=== PATIENT | female | born 1995 | race African-American/Black ===

== ENCOUNTER 2022-09-12 07:50 | Inpatient (IN) | payer MEDICAID ==
[2022-09-12] MEDS ORDERED: Methylergonovine 0.2 MG/1 ML Amp IM PRN (08:09)
[2022-09-12] MEDS ORDERED: Sodium Chloride 0.9% 2.5 ML Syringe FLUSH PRN (08:09)
[2022-09-12] MEDS ORDERED: Lidocaine 1% 50 ML MDV INJECT PRN (08:09)
[2022-09-12] MEDS ORDERED: Butorphanol 1 MG/ML SDV IVPUSH PRN (08:09)
[2022-09-12] MEDS ORDERED: Sodium Chloride 0.9% 10 ML Syringe FLUSH PRN (08:09)
[2022-09-12] MEDS ORDERED: Tranexamic Acid 1,000 MG in Sodium Chloride 0.9% 100 ML IV PRN (08:09)
[2022-09-12] MEDS ORDERED: Ondansetron 4 MG/2 ML SDV IVPUSH PRN (08:09)
[2022-09-12] MEDS ORDERED: Misoprostol 200 MCG Tab PO PRN (08:09)
[2022-09-12] MEDS ORDERED: Water For Irrigation,Sterile 1,000 ML Container IRR PRN (08:09)
[2022-09-12] MEDS ORDERED: Sodium Chloride 0.9% 20 ML SDV IV PRN (08:09)
[2022-09-12] MEDS ORDERED: Terbutaline 1 MG/ML SDV SUBCUT PRN (08:09)
[2022-09-12] MEDS ORDERED: Carboprost Tromethamine 250 MCG/1 ML Amp IM PRN (08:09)
[2022-09-12] MEDS ORDERED: Oxytocin/0.9 % Sodium Chloride 30 UNIT/500 ML BAG IV SCH ×2 (08:15)
[2022-09-12] MEDS: Lactated Ringers 1,000 ML IV SCH ×2 (08:20→10:18)
[2022-09-12] MEDS ORDERED: Ropivacaine/PF 400 MG/200 ML PCA ONE (09:04)
[2022-09-12] MEDS ORDERED: Bupivacaine 0.5% 10 ML SDV ONE (09:04)
[2022-09-12] MEDS ORDERED: Phenylephrine HCl In 0.9% NaCl 1 MG/10 ML Vial IVPUSH PRN (09:27)
[2022-09-12] MEDS ORDERED: ePHEDrine 50 MG/ML SDV IVPUSH PRN ×2 (09:27)
[2022-09-12] MEDS ORDERED: Ropivacaine HCl/PF 400 MG in Premix Bag 1 BAG EPIDUR SCH (09:30)
[2022-09-12] MEDS: Phenylephrine HCl In 0.9% NaCl 1 MG/10 ML Vial IVPUSH SCH (12:23)
[2022-09-12] MEDS ORDERED: Benzocaine/Menthol 20%-0.5% Spray 78 GM Cannister TOP PRN (14:47)
[2022-09-12] MEDS ORDERED: Lanolin 100% Cream 7 GM Tube TOP PRN (14:47)
[2022-09-12] MEDS ORDERED: Docusate Sodium 100 MG Cap PO PRN (14:47)
[2022-09-12] MEDS ORDERED: oxyCODONE 5 MG Tab PO PRN (14:47)
[2022-09-12] MEDS ORDERED: Ibuprofen 400 MG Tab PO PRN (14:47)
[2022-09-12] MEDS ORDERED: Witch Hazel Medicated Pads 40/Jar TOP PRN (14:47)
[2022-09-12] MEDS ORDERED: Bisacodyl 10 MG Supp RECTAL PRN (14:47)
[2022-09-12] MEDS ORDERED: Ibuprofen 800 MG Tab PO PRN (14:47)
[2022-09-12] MEDS ORDERED: Acetaminophen 500 MG Tab PO PRN ×2 (14:47)
== END 2022-09-14 12:30 | disposition home or self-care (01) | DRG 807 ==
LOC: MW.OBCHECK 07:50 → MW.OB 07:52 → MW.OBCHECK 14:33 → MW.OB 09-13 04:49
PROVIDERS: ADMIT Obstetrics & Gynecology; ATTEND Obstetrics & Gynecology
PROC: 10E0XZZ Delivery of Products of Conception, External Approach (ICD-10-PCS; principal; 2022-09-12)
PROC: 10907ZC Drainage of Amniotic Fluid, Therapeutic from Products of Conception, Via Natural or Artificial Opening (ICD-10-PCS; 2022-09-12)
PROC: 3E0R3BZ Introduction of Anesthetic Agent into Spinal Canal, Percutaneous Approach (ICD-10-PCS; 2022-09-12)
PROC: 00HU33Z Insertion of Infusion Device into Spinal Canal, Percutaneous Approach (ICD-10-PCS; 2022-09-12)
DX: O80 Encounter for full-term uncomplicated delivery (principal); Z37.0 Single live birth; Z3A.38 38 weeks gestation of pregnancy
CPT/HCPCS: 01967; 36415; 51702; 59025; 59409; 80305-QW; 85014; 85018; 85027; 86592; 86850; 86900; 86901; A9270-GY; J0595; J2590; J2795; J3490; J7120; U0002

== ENCOUNTER 2023-12-16 18:27 | Observation (INO) | payer SELFPAY ==
[2023-12-16] MEDS: Midazolam 1 MG/ML 2 ML SDV IVPUSH ONE ×2 (19:35→20:43)
[2023-12-16] MEDS: Ondansetron 4 MG/2 ML SDV IVPUSH ONE (19:35)
[2023-12-16] MEDS: Lactated Ringers 1,000 ML IV STA (19:36)
[2023-12-16] MEDS: Sodium Chloride 0.9% 10 ML Syringe FLUSH PRN (19:36)
[2023-12-16] MEDS: Sodium Chloride 0.9% 2.5 ML Syringe FLUSH PRN (19:36)
[2023-12-16 19:41] LABS: BASOPHILS ABSOLUTE AUTO 0.04 K/uL (0.00-0.20); BASOPHILS PERCENT AUTO 0.5 % (0.0-1.0); HEMATOCRIT 41.7 % (37.0-47.0); HEMOGLOBIN 15.5 g/dL (12.0-16.0); IMMATURE GRAN ABSOLUTE AUTO 0.03 K/uL (0.00-0.05); IMMATURE GRAN PERCENT AUTO 0.3 % (0.0-0.4); LYMPHOCYTES PERCENT AUTO 19.3 % (24.0-44.0); MEAN CORPUSCULAR HGB CONC 37.2 g/dL (32.0-36.0); MEAN CORPUSCULAR VOLUME 86.2 fL (83.0-99.0); MEAN PLATELET VOLUME 9.2 fL (9.4-12.3); MONOCYTES ABSOLUTE AUTO 0.57 K/uL (0.00-0.80); MONOCYTES PERCENT AUTO 6.5 % (0.0-8.0); NEUTROPHILS ABSOLUTE AUTO 6.49 K/uL (1.80-7.70); NEUTROPHILS PERCENT AUTO 73.4 % (41.0-71.0); PLATELET COUNT,PLT 283 K/uL (150-400); RED BLOOD CELL COUNT 4.84 M/uL (4.10-5.30); WHITE BLOOD CELL COUNT,WBC 8.83 K/uL (3.9-11.3)
[2023-12-16 19:53] LABS: AMPHETAMINES SCREEN, URINE NEGATIVE (CUTOFF=500); BARBITURATE SCREEN,URINE NEGATIVE (CUTOFF=200); BENZODIAZEPINES SCREEN,URINE NEGATIVE (CUTOFF=150); BUPRENORPHINE SCREEN,URINE NEGATIVE (CUTOFF=10); METHADONE SCREEN, URINE NEGATIVE (CUTOFF=200); METHAMPHETAMINES SCREEN, URINE NEGATIVE (CUTOFF=500); OXYCODONE SCREEN,URINE NEGATIVE (CUT0FF=100); PCP SCREEN,URINE NEGATIVE (CUTOFF=25); THC SCREEN,URINE 20 NG/ML PRESUMPTIVE POSITIVE (CUTOFF=50)
[2023-12-16 19:58] LABS: D-DIMER QUANTITATIVE 0.58 mg/L FEU (0.00-0.50); INR 1.02 (0.86-1.11); PTT,PARTIAL THROMBOPLSTIN TIME 25.1 SEC (23.9-30.7)
[2023-12-16 20:14] LABS: A/G RATIO 1.1 (0.9-1.6); ACETAMINOPHEN <2.0 ug/mL; ALANINE AMINOTRANSFERASE,ALT 67 IU/L (14-63); ALBUMIN 4.2 g/dL (3.4-5.0); ALKALINE PHOSPHATASE 79 U/L (46-116); ASPARTATE AMNIOTRANSFERASE,AST 106 IU/L (15-37); BLOOD UREA NITROGEN,BUN 10 mg/dL (7.0-18.0); CALCIUM 9.2 mg/dL (8.5-10.1); CHLORIDE,CL 94 mmol/L (98-107); CREATININE 0.9 mg/dL (0.6-1.0); EST CRCL DRUG DOSING (CG) 74.92 mL/min; GLUCOSE RANDOM 98 mg/dL (74-106); LIPASE 51 U/L (16-77); MAGNESIUM 1.3 mg/dL (1.8-2.4); PROTEIN TOTAL,TP 7.9 g/dL (6.4-8.2); SALICYLATE 0.3 mg/dL (0.0-20.0); SODIUM,NA 137 mmol/L (136-145); TSH ULTRASENSITIVE 2.12 uIU/mL (0.36-3.74)
[2023-12-16] MEDS: Lactated Ringers 1,000 ML IV ONE (20:43)
[2023-12-16 20:52] LABS: POTASSIUM,K 2.2 mmol/L (3.5-5.1)
[2023-12-16 20:53] LABS: ESTIMATED GFR 90 mL/min (>60); ETHANOL BLOOD MEDICAL < 3.0 mg/dL
[2023-12-16] MEDS ORDERED: Sodium Chloride 0.9% 250 ML IV ONE (21:00)
[2023-12-16] MEDS: NS with KCl 40mEq 1,000 ML IV SCH (21:26)
[2023-12-16] MEDS: Magnesium Sulfate/Water 4 GM in Premix Bag 1 BAG IV ONE (21:26)
[2023-12-16] MEDS: Potassium Chloride 10% 20 MEQ/15 ML Soln 15 ML UD Cup PO ONE (21:27)
[2023-12-16] MEDS: Potassium Chloride 100 ML IV SCH (21:33)
[2023-12-16] MEDS: Iopamidol 755 MG/ML 500 ML Multipack Bottle IVPUSH ONE (21:40)
[2023-12-16] MEDS ORDERED: Ondansetron 4 MG/2 ML SDV IVPUSH PRN (23:40)
[2023-12-16] MEDS ORDERED: Acetaminophen 325 MG Tab PO PRN (23:40)
[2023-12-16] MEDS ORDERED: Polyethylene Glycol 3350 Powder 17 GM Packet PO PRN (23:40)
[2023-12-16] MEDS ORDERED: PHENobarbitaL sodium 260 MG in Sodium Chloride 0.9% 100 ML IV PRN (23:46)
[2023-12-16] MEDS ORDERED: PHENobarbital Sodium 130 MG/ML SDV IVPUSH PRN (23:46)
[2023-12-17] MEDS: Folic Acid 1 MG/0.2 ML UD Syringe IV SCH (01:30)
[2023-12-17] MEDS: Potassium Chloride 20 MEQ Tab.ER PO ONE (01:32)
[2023-12-17] MEDS: Pantoprazole 40 MG in Sodium Chloride 0.9% 10 ML IVPUSH SCH (01:36)
[2023-12-17] MEDS: Potassium Chloride 100 ML IV SCH (01:39)
[2023-12-17] MEDS: Lactated Ringers 1,000 ML IV SCH (01:46)
[2023-12-17] MEDS: Thiamine 100 MG in Sodium Chloride 0.9% 100 ML IV SCH (02:20)
[2023-12-17 05:49] LABS: HEMATOCRIT 35.8 % (37.0-47.0); HEMOGLOBIN 12.8 g/dL (12.0-16.0); MEAN CORPUSCULAR HEMOGLOBIN 32.3 pg (28.0-32.0); MEAN CORPUSCULAR HGB CONC 35.8 g/dL (32.0-36.0); MEAN CORPUSCULAR VOLUME 90.4 fL (83.0-99.0); MEAN PLATELET VOLUME 9.4 fL (9.4-12.3); PLATELET COUNT,PLT 182 K/uL (150-400); RED BLOOD CELL COUNT 3.96 M/uL (4.10-5.30); WHITE BLOOD CELL COUNT,WBC 7.51 K/uL (3.9-11.3)
[2023-12-17 06:12] LABS: ALBUMIN 3.1 g/dL (3.4-5.0); BILIRUBIN TOTAL 1.9 mg/dL (0.2-1.0); CALCIUM 7.7 mg/dL (8.5-10.1); CARBON DIOXIDE,CO2 25.1 mmol/L (21.0-32.0); CREATININE 0.7 mg/dL (0.6-1.0); EST CRCL DRUG DOSING (CG) 98.53 mL/min; MAGNESIUM 2.7 mg/dL (1.8-2.4); PHOSPHORUS 2.3 mg/dL (2.6-4.7); POTASSIUM,K 4.7 mmol/L (3.5-5.1); PROTEIN TOTAL,TP 6.1 g/dL (6.4-8.2)
[2023-12-17] MEDS: Thiamine 200 MG/2 ML MDV IVPUSH SCH (08:52)
[2023-12-17] MEDS: Folic Acid 1 MG Tab PO SCH (08:52)
[2023-12-17] MEDS: Phosphorus #1 250 MG Tab PO ONE (11:31)
== END 2023-12-17 12:30 | disposition home or self-care (01) ==
LOC: MW.ED 18:27 → MW.MS 23:06
PROVIDERS: ADMIT Family Medicine; ATTEND Family Medicine
DX: F10.939 Alcohol use, unspecified with withdrawal, unspecified (principal); E87.6 Hypokalemia; E83.42 Hypomagnesemia; F41.9 Anxiety disorder, unspecified; R74.01 Elevation of levels of liver transaminase levels; Z88.1 Allergy status to other antibiotic agents; Z88.8 Allergy status to other drugs, medicaments and biological substances; Z79.899 Other long term (current) drug therapy
CPT/HCPCS: 36415; 71275; 76705; 80053; 80061; 80143; 80179; 80305; 80307; 83690; 83735; 84100; 84443; 84484; 84703; 85025; 85027; 85379; 85610; 85730; 87651; 93005; 96361; 96365; 96366; 96367; 96368; 96375; 96376; 99285; A9270; C9113; G0378; J2250; J2405; J3411; J3475; J3480; J3490; J7120; Q9967; 93010; 99291